=== PATIENT | female | born 1955 | race Caucasian/White ===

== ENCOUNTER 2018-02-13 17:42 | Emergency (ER) | payer MEDICARE ==
[2018-02-13 18:19] VITALS: PULSE 65
[2018-02-13] MEDS ORDERED: RABIES VACC,HUMAN DIPLOID (PF) 2.5 UNIT KIT IM ONE (18:46)
[2018-02-13] MEDS ORDERED: RABIES IMMUNE GLOB 150 UNIT/ML 10 ML VIAL IM ONE (18:46)
--- NOTE | 2018-02-13 18:55 | ED ---
Recheck HPI - General Chief Complaint: Recheck/Abnormal Lab/Rx Stated Complaint: DOG BITE Time Seen by Provider: 02/13/18 18:23 Source: patient, RN notes reviewed Mode of arrival: ambulatory Limitations: no limitations - History of Present Illness Initial Comments: This is a 63-year-old female who presents to the emergency department chief complaint of dog bite. Patient states that 2 weeks ago she was bit by an unknown dog while bike riding. She states that she did follow up with urgent care and then again at [facility]. Both times it was recommended the patient not receive the rabies vaccinations. Patient states that she has been receiving phone calls from the health department recommending that she get the rabies vaccination. Patient states that she has become very worried because of this. Patient denies any current symptoms. She states that the bite has healed well. She denies fevers or chills, chest pain or shortness of breath, abdominal pain, nausea or vomiting, diarrhea or constipation, dizziness or headache. - Related Data Home Medications Medication Instructions Recorded Confirmed No Known Home Medications [No 02/13/18 02/13/18 Known Home Medications] Allergies Allergy/AdvReac Type Severity Reaction Status Date / Time No Known Allergies Allergy Verified 02/13/18 18:19 Review of Systems ROS Statement: Those systems with pertinent positive or pertinent negative responses have been documented in the HPI. ROS Other: All systems not noted in ROS Statement are negative. Past Medical History Past Medical History: No Reported History History of Any Multi-Drug Resistant Organisms: None Reported Past Surgical History: Section Additional Past Surgical History / Comment(s): exporatory lap Past Psychological History: No Psychological Hx Reported Smoking Status: Never smoker Past Alcohol Use History: Daily Past Drug Use History: None Reported General Exam - General Exam Comments Initial Comments: General: Awake and alert, well-developed; in no apparent distress. Healthy- appearing female. HEENT: Head atraumatic, normocephalic. Pupils are equal, round and reactive to light. Extraocular movements intact. Oropharynx moist without erythema or exudate. Neck: Supple. Normal ROM. Cardiovascular: Regular rate and rhythm. No murmurs, rubs or gallops. Chest symmetrical. Respiratory: Lungs clear to auscultation bilaterally. No wheezes, rales or rhonchi. Normal respiratory effort with no use of accessory muscles. Musculoskeletal: Normal ROM, no tenderness bilateral upper and lower extremities. Ambulating normally. Skin: [place], warm and dry. 2 small scabbed over well-healing animal bite hernandez to the lateral right ankle. No surrounding erythema, drainage or signs of infection. Neurological: Alert and oriented x3. CN II-XII grossly intact. Speech is fluent and answers are appropriate. No focal neuro deficits. Psychiatric: Normal mood and affect. No overt signs of depression or anxiety noted. Limitations: no limitations Course Vital Signs 02/13/18 18:14 Temperature 98.1 F Pulse Rate 65 Respiratory 16 Rate Blood Pressure 135/79 O2 Sat by Pulse 97 Oximetry Medical Decision Making - Medical Decision Making This is a 63-year-old female presents to the emergency department with chief complaint of dog bite. Patient states that she was recommended to receive the rabies vaccination by the health department. She was bit by an unknown dog 2 weeks ago in her right ankle. These hernandez do appear to be well-healing. Patient denies any discomfort. Patient states that the health department made her worried about rabies as they keep recommending it. She does wish to have the rabies vaccination series. Patient will be given instructions to have repeat doses on days 3, 7 and 14. She is provided with the contact information to schedule this administration. Vital signs are stable and she is in no acute distress. She'll be discharged at this time. All questions answered. Disposition Clinical Impression: Need for post exposure prophylaxis for rabies Disposition: HOME SELF-CARE Condition: Good Instructions: Rabies Vaccine (By injection), Rabies Immune Globulin (By injection), Rabies (ED), Rabies Vaccine (ED) Additional Instructions: Please have repeat vaccine doses on days 3, 7 and 14. Please call [phone] to scheduled these appointments. Please follow up with primary care provider within 1-2 days. Return to emergency department if symptoms should worsen or any concerns arise. Is patient prescribed a controlled substance at d/c from ED?: No Referrals: Sumit Sánchez MD [Primary Care Provider] - 1-2 days Time of Disposition: 19:32
[2018-02-13 19:44] VITALS: BP 132/65; RESP 18; TEMP 98.3
== END 2018-02-13 19:41 | disposition home or self-care (01) ==
LOC: EC 17:42
DX: Z20.3 Contact with and (suspected) exposure to rabies (principal); Z23 Encounter for immunization
CPT/HCPCS: 90375; 90471; 90675; 96372; 99283

== ENCOUNTER 2018-03-29 08:12 | Day surgery (SDC) | payer MEDICARE ==
[2018-03-26 18:01] VITALS: BMI 23.0
[~2018-03-29 08:12] MED LIST: LACTATED RINGERS 1,000 ML IV SCH
[2018-03-29] MEDS ORDERED: LACTATED RINGERS 1,000 ML IV ONE (08:56)
[2018-03-29 08:57] VITALS: RESP 18; TEMP 97.5
[2018-03-29] MEDS ORDERED: LIDOCAINE 1% 20 ML VIAL (10MG/ML) FOR IV START INTRADERMA ONE (08:57)
[2018-03-29] MEDS ORDERED: PROPOFOL 10 MG/ML 20 ML VIAL IV ONE (09:32)
--- NOTE | 2018-03-29 09:50 | P.PCN ---
Date of Procedure: 03/29/18 Procedure(s) Performed: BRIEF HISTORY: Patient is a 63-year-old pleasant milligrams scheduled for an elective colonoscopy as a part of screening for colorectal neoplasia. PROCEDURE PERFORMED: Colonoscopy. PREOPERATIVE DIAGNOSIS: Screening for colon cancer. IV sedation per Anesthesia. PROCEDURE: After informed consent was obtained, the patient, was brought into the endoscopy unit. IV sedation was administered by Anesthesia under continuous monitoring. Digital rectal examination was normal. Initially the Olympus CF- 160 flexible video colonoscope was then inserted in the rectum, gradually advanced into the cecum without any difficulty. Careful examination was performed as the scope was gradually being withdrawn. Ileocecal valve and the appendiceal orifice were visualized and appeared normal. Prep was excellent. Mucosa of the cecum, ascending colon, transverse colon, descending colon, sigmoid colon, and rectum appeared normal. Scattered sigmoid diverticulosis seen. Retroflexion was performed in the rectum and no lesions were seen. The patient tolerated the procedure well. IMPRESSION: Normal-appearing colon from rectum to cecum with no evidence of colorectal neoplasia. Scattered sigmoid diverticulosis. RECOMMENDATIONS: Findings of this examination were discussed with the patient as well as a family. She was advised to have a repeat screening colonoscopy in 10 years.
[2018-03-29 10:22] VITALS: BP 131/65; PULSE 57
== END 2018-03-29 10:35 | disposition home or self-care (01) ==
LOC: ORWHC2ENDO 08:12
PROVIDERS: ATTEND Internal Medicine Gastroenterology
DX: Z12.11 Encounter for screening for malignant neoplasm of colon (principal); K57.30 Diverticulosis of large intestine without perforation or abscess without bleeding; M81.0 Age-related osteoporosis without current pathological fracture
CPT/HCPCS: J2704; G0121